=== PATIENT | female | born 1980 | race Asian ===

== ENCOUNTER 2018-02-04 09:46 | Inpatient (IN) | payer SELFPAY ==
[~2018-02-04] VITALS: Ht 166 cm; Wt 78.9 kg
[2018-02-04] MEDS ORDERED: OXYTOCIN 20 UNITS in LACTATED RINGERS 1,000 ML IV SCH (10:54)
[2018-02-04] MEDS ORDERED: PROMETHAZINE 25 MG/ML VIAL IVP PRN (10:55)
[2018-02-04] MEDS ORDERED: NALBUPHINE 10 MG/ML AMP IVP PRN (10:55)
[2018-02-04] MEDS ORDERED: CARBOPROST 250 MCG/ML AMP IM PRN (10:55)
[2018-02-04] MEDS ORDERED: OXYTOCIN 10 UNITS/ML VIAL IM ONE (10:55)
[2018-02-04] MEDS ORDERED: METHYLERGONOVINE 0.2 MG/ML AMP IM PRN ×2 (10:55→20:05)
[2018-02-04] MEDS ORDERED: IBUPROFEN 800 MG TAB PO PRN ×2 (10:55→20:05)
[2018-02-04] MEDS: LACTATED RINGERS 1,000 ML IV SCH ×3 (11:28→15:34)
[2018-02-04 11:35] LABS: BASOPHILS % (AUTO) 0.1 % (0.0-2.0); EOSINOPHILS % (AUTO) 0.3 % (0.0-4.0); HEMATOCRIT 35.3 % (36-48); LYMPHOCYTES % (AUTO) 10.6 % (20.5-51.1); MEAN CORPUSCULAR HEMOGLOBIN 31 pg (27-31); MEAN CORPUSCULAR HGB CONC 34 g/dL (33-37); MEAN CORPUSCULAR VOLUME 91.2 fL (80-94); MONOCYTES # (AUTO) 0.7 K/uL (0.8-1.0); MONOCYTES % (AUTO) 7.6 % (1.7-9.3); NEUTROPHILS # (AUTO) 7.9 K/uL (1.8-7.7); NEUTROPHILS % (AUTO) 81.4 % (42.2-75.2); PLATELET COUNT (AUTO) 153 K/uL (140-450); RED BLOOD CELL COUNT(AUTO) 3.87 MIL/uL (4.20-5.40); RED CELL DISTRIBUTION WIDTH 12.9 % (11.6-13.7); WHITE BLOOD COUNT (AUTO) 9.6 K/uL (4.8-10.8)
[2018-02-04 12:05] LABS: RAPID PLASMA REAGIN NON-REACTIVE (Non Reactiv)
[2018-02-04] MEDS ORDERED: BUPIVACAINE 0.125%/NS PREMIX 250 ML ONE (12:32)
[2018-02-04 13:04] VITALS: BP 114/56
[2018-02-04 13:28] LABS: BILIRUBIN,URINE NEGATIVE (NEGATIVE); BLOOD, URINE TRACE-I (NEGATIVE); COLOR,URINE YELLOW (YELLOW); LEUKOCYTE ESTERASE ,URINE NEGATIVE (NEGATIVE); NITRITE, URINE NEGATIVE (NEGATIVE); UGLUCOSE NEGATIVE (NEGATIVE)
[2018-02-04 13:38] LABS: RBC,URINE 0-5 (RARE) /HPF (0-5); WBC,URINE 0-5 (RARE) /HPF (0-5)
[2018-02-04 13:40] LABS: APPEARANCE,URINE SLIGHTLY HAZY (CLEAR)
[2018-02-04] MEDS ORDERED: OXYTOCIN 10 UNITS/ML VIAL ONE (17:33)
[2018-02-04] MEDS ORDERED: TEMAZEPAM 15 MG CAP PO PRN (20:05)
[2018-02-04] MEDS ORDERED: HYDROcodone/APAP 5/325 MG 1 TAB TAB PO PRN (20:05)
[2018-02-04] MEDS ORDERED: MEASLES, MUMPS, AND RUBELLA 1 VIAL SQVAC PRN (20:05)
[2018-02-04] MEDS ORDERED: BENZOCAINE/MENTHOL 20%-0.5% 60 GM CAN TP PRN (20:05)
[2018-02-04] MEDS ORDERED: OXYTOCIN 10 UNITS/ML VIAL IM PRN (20:05)
[2018-02-04] MEDS ORDERED: oxyCODONE/APAP 5/325 MG 1 TAB TAB PO PRN (20:05)
[2018-02-04] MEDS ORDERED: DOCUSATE SOD/SENNA 50/8.6 MG 1 TAB PO SCH (21:00)
[2018-02-05 08:03] LABS: HEMATOCRIT 32.3 % (36-48); HEMOGLOBIN 10.9 g/dL (12.0-16.0)
--- NOTE | 2018-02-05 09:10 | NUR ---
PATIENT HAS BEEN SCREENED AND CATEGORIZED LOW NUTRITION RISK. PATIENT WILL BE SEEN WITHIN 7 DAYS OF ADMISSION. 02/10/[address]
== END 2018-02-06 14:00 | disposition home or self-care (01) | DRG 775 ==
LOC: MFCC 09:46
PROVIDERS: ADMIT Obstetrics & Gynecology; ATTEND Obstetrics & Gynecology
PROC: 10E0XZZ Delivery of Products of Conception, External Approach (ICD-10-PCS; principal; 2018-02-04)
PROC: 10907ZC Drainage of Amniotic Fluid, Therapeutic from Products of Conception, Via Natural or Artificial Opening (ICD-10-PCS; 2018-02-04)
PROC: 00HU33Z Insertion of Infusion Device into Spinal Canal, Percutaneous Approach (ICD-10-PCS; 2018-02-04)
PROC: 3E0R3BZ Introduction of Anesthetic Agent into Spinal Canal, Percutaneous Approach (ICD-10-PCS; 2018-02-04)
PROC: 3E0234Z Introduction of Serum, Toxoid and Vaccine into Muscle, Percutaneous Approach (ICD-10-PCS; 2018-02-05)
DX: O80 Encounter for full-term uncomplicated delivery (principal); Z37.0 Single live birth; Z3A.39 39 weeks gestation of pregnancy; Z23 Encounter for immunization
CPT/HCPCS: 36415; 51702; 59409; 81001; 85018; 85025; 86592; 86886; 86900; 86901; 90715; J2590; J3490; J7120